=== PATIENT | male | born 1955 | race Caucasian/White ===

== ENCOUNTER → 2023-07-21 15:33 | Outpatient (BNVA) | payer OTHER, SELFPAY | PROVIDERS: Visit Provider Dermatology | DX: D48.5 Neoplasm of uncertain behavior of skin (principal); L98.8 Other specified disorders of the skin and subcutaneous tissue; L81.4 Other melanin hyperpigmentation; L82.1 Other seborrheic keratosis | CPT/HCPCS: 11102; 99213 ==

== ENCOUNTER → 2024-08-24 14:12 | Outpatient (BNVA) | payer MEDICARE, SELFPAY | PROVIDERS: PCP Family Medicine; Visit Provider Nurse Practitioner Family | DX: D23.72 Other benign neoplasm of skin of left lower limb, including hip (principal); L57.0 Actinic keratosis; L98.8 Other specified disorders of the skin and subcutaneous tissue; L81.4 Other melanin hyperpigmentation; L82.1 Other seborrheic keratosis; D18.01 Hemangioma of skin and subcutaneous tissue; D69.2 Other nonthrombocytopenic purpura | CPT/HCPCS: 17000; 99213 ==